=== PATIENT | female | born 1970 | race Two or more races ===

== ENCOUNTER 2024-01-28 13:40 | Emergency (ER) | payer OTHER ==
[~2024-01-28] VITALS: Ht 149.9 cm; Wt 64.4 kg
[2024-01-28] MEDS ORDERED: COZAAR25 MG PO (14:09)
[2024-01-28] MEDS ORDERED: SUMATRIPTAN SUCCINATE 6 MG/0.5 ML VIAL SUBCUTANEO ONE (14:15)
[2024-01-28] MEDS ORDERED: BUTALB/ACETAMINOPHEN/CAFFEINE 1 TAB TABLET PO ONE (14:15)
[2024-01-28] MEDS ORDERED: ORPHENADRINE CITRATE 100 MG TABLET PO ONE (17:45)
== END 2024-01-28 19:38 | disposition home or self-care (01) ==
LOC: ER 13:40
DX: R51.9 Headache, unspecified (principal); M99.01 Segmental and somatic dysfunction of cervical region